=== PATIENT | male | born 1960 | race Caucasian/White ===

== ENCOUNTER → 2016-09-03 | Outpatient (RCR) | payer OTHER ==
[~2016-09-03] MED LIST: /ESCI20TA OR; /HALO1T OR; ABIL2TAB; ABIL5TAB; ACAM0.05 PO; ASPI81TA3; AVAP150T; CLARITIN PO; Campral PO; DEPA500T2; ECOT81TA5 PO; FURO40TA2 PO; GEMF600T; GEMF600T PO; INVE156I IM; INVE234I IM; INVE3TAB2 PO; INVEGA PO; K-TA10TA2 PO; KLON1TAB; KLOR10TA OR; LASI40TA; LASI40TA OR; LIDO1OIN2 TOP; LIDO5DIS; LISI10TA4 OR; LISI10TA4 PO; LOPI600T OR; METF500T PO; MULT1TAB8 PO; NIFE20CA PO; NIFE30TA; NIFEPOW PO; OMEP20CA3 PO; POTA10CA2; PROV90AE; PROZ10CA; PROZ10CA7 PO; REST30CA; RISP3TAB16; RISP4TAB; SERO1TAB PO; SERO400T PO; SERO50TA PO; TRIL150T PO; TRIL1TAB PO; TRIL600T OR; ZYPR10TA PO; campral PO
== END ==
LOC: M OUTALCOH 08-06 09:40
PROVIDERS: ATTEND Psychiatry & Neurology Psychiatry
DX: F10.20 Alcohol dependence, uncomplicated (principal); F12.20 Cannabis dependence, uncomplicated; F17.200 Nicotine dependence, unspecified, uncomplicated

== ENCOUNTER 2016-09-26 09:00 | Outpatient (RCR) | payer OTHER | END 2016-10-01 | LOC: M OUTALCOH 09:00 | PROVIDERS: ATTEND Psychiatry & Neurology Psychiatry | DX: F10.20 Alcohol dependence, uncomplicated (principal); F12.20 Cannabis dependence, uncomplicated; F17.200 Nicotine dependence, unspecified, uncomplicated ==

== ENCOUNTER 2016-10-22 10:00 | Outpatient (RCR) | payer OTHER | END 2016-11-01 | LOC: M OUTALCOH 10:00 | PROVIDERS: ATTEND Psychiatry & Neurology Psychiatry | DX: F10.20 Alcohol dependence, uncomplicated (principal); F12.20 Cannabis dependence, uncomplicated; F17.200 Nicotine dependence, unspecified, uncomplicated ==

== ENCOUNTER 2016-11-19 10:00 | Outpatient (RCR) | payer OTHER | END 2016-12-01 | LOC: M OUTALCOH 10:00 | PROVIDERS: ATTEND Psychiatry & Neurology Psychiatry | DX: Z13.9 Encounter for screening, unspecified (principal); F12.20 Cannabis dependence, uncomplicated; F10.20 Alcohol dependence, uncomplicated; F17.200 Nicotine dependence, unspecified, uncomplicated ==

== ENCOUNTER 2016-12-31 10:00 | Outpatient (RCR) | payer OTHER | END 2017-01-01 | LOC: M OUTALCOH 10:00 | PROVIDERS: ATTEND Psychiatry & Neurology Psychiatry | DX: F10.20 Alcohol dependence, uncomplicated (principal); F12.20 Cannabis dependence, uncomplicated; F17.200 Nicotine dependence, unspecified, uncomplicated ==

== ENCOUNTER 2017-01-30 09:00 | Outpatient (RCR) | payer OTHER ==
[~2017-01-30 09:00] MED LIST changes: -METF500T PO; +METF500T13 PO
== END 2017-01-31 ==
LOC: M OUTALCOH 09:00
PROVIDERS: ATTEND Psychiatry & Neurology Psychiatry
DX: Z13.9 Encounter for screening, unspecified (principal); F10.20 Alcohol dependence, uncomplicated; F12.20 Cannabis dependence, uncomplicated; F17.200 Nicotine dependence, unspecified, uncomplicated

== ENCOUNTER 2017-02-25 10:00 | Outpatient (RCR) | payer OTHER | END 2017-03-03 | LOC: M OUTALCOH 10:00 | PROVIDERS: ATTEND Psychiatry & Neurology Psychiatry | DX: F10.20 Alcohol dependence, uncomplicated (principal); F12.20 Cannabis dependence, uncomplicated; F17.200 Nicotine dependence, unspecified, uncomplicated ==

== ENCOUNTER 2017-04-02 15:00 | Outpatient (RCR) | payer OTHER | END 2017-04-03 | LOC: M OUTALCOH 15:00 | PROVIDERS: ATTEND Psychiatry & Neurology Psychiatry | DX: F10.20 Alcohol dependence, uncomplicated (principal); F12.20 Cannabis dependence, uncomplicated; F17.200 Nicotine dependence, unspecified, uncomplicated ==

== ENCOUNTER 2017-05-02 15:00 | Outpatient (RCR) | payer OTHER | END 2017-05-03 | LOC: M OUTALCOH 15:00 | PROVIDERS: ATTEND Psychiatry & Neurology Psychiatry | DX: F10.20 Alcohol dependence, uncomplicated (principal); F12.20 Cannabis dependence, uncomplicated; F17.200 Nicotine dependence, unspecified, uncomplicated ==

== ENCOUNTER 2017-06-30 16:00 | Outpatient (RCR) | payer OTHER | END 2017-07-03 | LOC: M OUTALCOH 16:00 | PROVIDERS: ATTEND Psychiatry & Neurology Psychiatry | DX: F10.20 Alcohol dependence, uncomplicated (principal); F12.20 Cannabis dependence, uncomplicated; F17.200 Nicotine dependence, unspecified, uncomplicated ==

== ENCOUNTER 2017-08-14 14:27 | Outpatient (RCR) | payer OTHER | END 2017-09-03 | LOC: M OUTALCOH 14:27 | DX: F10.20 Alcohol dependence, uncomplicated (principal) | CPT/HCPCS: 90834 ==

== ENCOUNTER 2017-09-17 11:07 | Outpatient (RCR) | payer OTHER | END 2017-10-01 | LOC: M OUTALCOH 10-01 10:00 | DX: F10.20 Alcohol dependence, uncomplicated (principal); F12.20 Cannabis dependence, uncomplicated | CPT/HCPCS: 90834 ==

== ENCOUNTER 2017-10-15 10:08 | Outpatient (RCR) | payer OTHER | END 2017-11-01 | LOC: M OUTALCOH 10-29 10:00 | DX: F10.20 Alcohol dependence, uncomplicated (principal) | CPT/HCPCS: 90834 ==

== ENCOUNTER 2017-11-12 11:13 | Outpatient (RCR) | payer OTHER | END 2017-12-01 | LOC: M OUTALCOH 11:13 | DX: F10.20 Alcohol dependence, uncomplicated (principal) | CPT/HCPCS: 90834 ==

== ENCOUNTER 2017-12-10 14:17 | Outpatient (RCR) | payer OTHER | END 2018-01-01 | LOC: M OUTALCOH 14:17 | DX: F10.20 Alcohol dependence, uncomplicated (principal) | CPT/HCPCS: 90834 ==

== ENCOUNTER 2018-01-14 11:28 | Outpatient (RCR) | payer OTHER | END 2018-01-31 | LOC: M OUTALCOH 11:28 | DX: F10.20 Alcohol dependence, uncomplicated (principal) | CPT/HCPCS: 90834 ==

== ENCOUNTER 2018-02-02 10:52 | Outpatient (RCR) | payer OTHER | END 2018-03-03 | LOC: M OUTALCOH 10:52 | DX: F10.20 Alcohol dependence, uncomplicated (principal) | CPT/HCPCS: 90834 ==

== ENCOUNTER 2018-04-09 15:32 | Outpatient (RCR) | payer OTHER | END 2018-05-03 | LOC: M OUTALCOH 15:32 | DX: F10.20 Alcohol dependence, uncomplicated (principal) | CPT/HCPCS: 90834 ==

== ENCOUNTER 2018-05-05 10:00 | Outpatient (RCR) | payer OTHER | END 2018-06-03 | LOC: M OUTALCOH 05-07 11:00 | DX: F10.20 Alcohol dependence, uncomplicated (principal) | CPT/HCPCS: 90834 ==

== ENCOUNTER 2018-06-04 09:29 | Outpatient (RCR) | payer OTHER | END 2018-07-03 | LOC: M OUTALCOH 06-11 11:00 | DX: F10.20 Alcohol dependence, uncomplicated (principal) | CPT/HCPCS: 90834 ==

== ENCOUNTER 2018-07-31 09:48 | Outpatient (RCR) | payer OTHER ==
[~2018-07-31 09:48] MED LIST changes: -GEMF600T PO; +GEMF600T5 PO
== END 2018-08-03 ==
LOC: M OUTALCOH 09:48
PROVIDERS: ATTEND Psychiatry & Neurology Psychiatry
DX: F10.20 Alcohol dependence, uncomplicated (principal)

== ENCOUNTER 2018-08-25 09:48 | Outpatient (RCR) | payer OTHER | END 2018-09-03 | LOC: M OUTALCOH 09:48 | PROVIDERS: ATTEND Psychiatry & Neurology Psychiatry | DX: F10.20 Alcohol dependence, uncomplicated (principal) ==

== ENCOUNTER → 2018-10-01 | Outpatient (RCR) | payer OTHER | LOC: M OUTALCOH 09-08 09:45 | PROVIDERS: ATTEND Psychiatry & Neurology Psychiatry | DX: F10.20 Alcohol dependence, uncomplicated (principal) ==

== ENCOUNTER 2018-10-28 08:46 | Outpatient (RCR) | payer OTHER | END 2018-11-01 | LOC: M OUTALCOH 08:46 | PROVIDERS: ATTEND Psychiatry & Neurology Psychiatry | DX: F10.20 Alcohol dependence, uncomplicated (principal) ==

== ENCOUNTER 2018-11-24 10:00 | Outpatient (RCR) | payer OTHER ==
[~2018-11-24 10:00] MED LIST changes: -/ESCI20TA OR; -/HALO1T OR; +HALO1TAB20 OR; +LEXA1TAB2 OR
== END 2018-12-01 ==
LOC: M OUTALCOH 10:00
PROVIDERS: ATTEND Psychiatry & Neurology Psychiatry
DX: F10.20 Alcohol dependence, uncomplicated (principal)

== ENCOUNTER 2018-12-29 10:58 | Outpatient (RCR) | payer OTHER | END 2019-01-01 | LOC: M OUTALCOH 10:58 | PROVIDERS: ATTEND Psychiatry & Neurology Psychiatry | DX: F10.20 Alcohol dependence, uncomplicated (principal) ==

== ENCOUNTER 2019-01-26 11:00 | Outpatient (RCR) | payer OTHER | END 2019-01-31 | LOC: M OUTALCOH 11:00 | PROVIDERS: ATTEND Psychiatry & Neurology Psychiatry | DX: F10.20 Alcohol dependence, uncomplicated (principal) ==

== ENCOUNTER 2019-02-24 12:00 | Outpatient (RCR) | payer OTHER ==
[~2019-02-24 12:00] MED LIST changes: -OMEP20CA3 PO; +OMEP20CA4 PO
== END 2019-03-03 ==
LOC: M OUTALCOH 12:00
PROVIDERS: ATTEND Psychiatry & Neurology Psychiatry
DX: F10.20 Alcohol dependence, uncomplicated (principal)

== ENCOUNTER 2019-03-22 08:57 | Outpatient (RCR) | payer OTHER | END 2019-04-03 | LOC: M OUTALCOH 08:57 | PROVIDERS: ATTEND Psychiatry & Neurology Psychiatry | DX: F10.20 Alcohol dependence, uncomplicated (principal) ==

== ENCOUNTER 2019-04-12 10:50 | Outpatient (RCR) | payer OTHER | END 2019-05-03 | LOC: M OUTALCOH 10:50 | PROVIDERS: ATTEND Psychiatry & Neurology Psychiatry | DX: F10.20 Alcohol dependence, uncomplicated (principal) ==

== ENCOUNTER 2019-05-24 10:59 | Outpatient (RCR) | payer OTHER | END 2019-06-03 | LOC: M OUTALCOH 10:59 | PROVIDERS: ATTEND Psychiatry & Neurology Psychiatry | DX: F10.20 Alcohol dependence, uncomplicated (principal) ==

== ENCOUNTER 2019-07-05 08:54 | Outpatient (RCR) | payer OTHER ==
[~2019-07-05 08:54] MED LIST changes: +OMEP-172 PO; -OMEP20CA4 PO
== END 2019-08-03 ==
LOC: M OUTALCOH 08:54
PROVIDERS: ATTEND Psychiatry & Neurology Psychiatry
DX: F10.20 Alcohol dependence, uncomplicated (principal)

== ENCOUNTER 2019-08-16 08:58 | Outpatient (RCR) | payer OTHER ==
[~2019-08-16 08:58] MED LIST changes: -OMEP-172 PO; +OMEP1CAP73 PO
== END 2019-09-03 ==
LOC: M OUTALCOH 08:58
PROVIDERS: ATTEND Psychiatry & Neurology Addiction Medicine
DX: F10.20 Alcohol dependence, uncomplicated (principal)

== ENCOUNTER 2019-09-27 15:32 | Outpatient (RCR) | payer OTHER | END 2019-10-02 | LOC: M OUTALCOH 15:32 | PROVIDERS: ATTEND Psychiatry & Neurology Addiction Medicine | DX: F10.20 Alcohol dependence, uncomplicated (principal) ==

== ENCOUNTER 2019-11-10 09:45 | Outpatient (RCR) | payer OTHER | END 2019-12-02 | LOC: M OUTALCOH 09:45 | PROVIDERS: ATTEND Psychiatry & Neurology Addiction Medicine | DX: F10.20 Alcohol dependence, uncomplicated (principal) ==

== ENCOUNTER 2019-12-21 11:05 | Outpatient (RCR) | payer OTHER | END 2020-01-02 | LOC: M OUTALCOH 11:05 | PROVIDERS: ATTEND Psychiatry & Neurology Addiction Medicine | DX: F10.20 Alcohol dependence, uncomplicated (principal) ==

== ENCOUNTER 2020-01-25 13:59 | Outpatient (RCR) | payer OTHER | END 2020-02-01 | LOC: M OUTALCOH 13:59 | PROVIDERS: ATTEND Counselor Addiction (Substance Use Disorder) | DX: F10.20 Alcohol dependence, uncomplicated (principal) ==

== ENCOUNTER 2020-02-29 10:00 | Outpatient (RCR) | payer OTHER | END 2020-03-03 | LOC: M OUTALCOH 10:00 | PROVIDERS: ATTEND Psychiatry & Neurology Addiction Medicine | DX: F10.20 Alcohol dependence, uncomplicated (principal) ==

== ENCOUNTER 2020-04-04 09:48 | Outpatient (RCR) | payer OTHER | END 2020-05-03 | LOC: M OUTALCOH 09:48 | PROVIDERS: ATTEND Psychiatry & Neurology Addiction Medicine | DX: F10.20 Alcohol dependence, uncomplicated (principal) ==

== ENCOUNTER 2020-05-16 10:40 | Outpatient (RCR) | payer OTHER | END 2020-06-03 | LOC: M OUTALCOH 10:40 | PROVIDERS: ATTEND Psychiatry & Neurology Addiction Medicine | DX: F10.20 Alcohol dependence, uncomplicated (principal) ==

== ENCOUNTER 2020-06-27 14:37 | Outpatient (RCR) | payer OTHER | END 2020-07-03 | LOC: M OUTALCOH 14:37 | PROVIDERS: ATTEND Psychiatry & Neurology Addiction Medicine | DX: F10.20 Alcohol dependence, uncomplicated (principal) ==

== ENCOUNTER 2020-08-22 09:49 | Outpatient (RCR) | payer OTHER | END 2020-09-03 | LOC: M OUTALCOH 09:49 | PROVIDERS: ATTEND Psychiatry & Neurology Psychiatry | DX: F10.20 Alcohol dependence, uncomplicated (principal) ==

== ENCOUNTER 2020-10-03 09:45 | Outpatient (RCR) | payer OTHER ==
[~2020-10-03 09:45] MED LIST changes: +LISI10TA22 PO; -LISI10TA4 PO
== END 2020-11-01 ==
LOC: M OUTALCOH 09:45
PROVIDERS: ATTEND Psychiatry & Neurology Psychiatry
DX: F10.20 Alcohol dependence, uncomplicated (principal)

== ENCOUNTER 2020-11-14 11:40 | Outpatient (RCR) | payer OTHER | END 2020-12-01 | LOC: M OUTALCOH 11:40 | PROVIDERS: ATTEND Psychiatry & Neurology Psychiatry | DX: F10.20 Alcohol dependence, uncomplicated (principal) ==

== ENCOUNTER 2021-01-02 13:10 | Outpatient (RCR) | payer OTHER | END 2021-01-31 | LOC: M OUTALCOH 13:10 | PROVIDERS: ATTEND Psychiatry & Neurology Psychiatry | DX: F10.20 Alcohol dependence, uncomplicated (principal) ==

== ENCOUNTER → 2022-09-12 | Outpatient (REF) | payer OTHER ==
[~2022-09-12] MED LIST changes: +CHOL10007 PO; +FLOM0.4C39 PO; +FLUT1BLS2 IH; +GLIM4TAB5 PO; +JARD1TAB3 PO; +LEXA1TAB PO; +LISI20TA33 PO; +NESI25TA PO; +NIFE90TA20 PO; +ROSU20TA5 PO; +SPIR1CAP INH; +VITMTA PO
== END ==
LOC: M LABSMTC 10:24
PROVIDERS: ATTEND Anesthesiology
DX: Z11.52 Encounter for screening for COVID-19 (principal)

== ENCOUNTER → 2022-10-25 | Outpatient (CLI) | payer OTHER ==
[~2022-10-25] MED LIST changes: +ALOG1TAB2 PO; +[UNRECOGNIZED DRUG - OTHER]
== END ==
LOC: M LABSMTC 09:12
PROVIDERS: ATTEND Anesthesiology
DX: Z01.812 Encounter for preprocedural laboratory examination (principal); Z20.822 Contact with and (suspected) exposure to COVID-19

== ENCOUNTER 2022-10-28 08:35 | Day surgery (SDC) | payer OTHER ==
[~2022-10-28] VITALS: Ht 180.3 cm; Wt 135.2 kg
[~2022-10-28 08:35] MED LIST changes: +BSS IRRIG/VANCO(10MG)/TOBRA(5MG)/EPINEPH(1:1000-0.5CC)500ML BAG-ORONLY IR ONE; +CYCLOPENTOLATE 1% OPHTH SOLN 2ML BTL OD SCH; +LIDOCAINE 1% SDV 5ML VIAL As Ordered ONE; +LIDOCAINE 3.5 % 1ML OPHTH TOPICAL GEL OU ONE; +MIDAZOLAM INJ 2MG/2ML VIAL As Ordered ONE; +OFLOXACIN 0.3 % (OCUFLOX) OPTH SOL 5ML OD ONE; +PHENYLEPHRINE 10% OPHTH SOL 5ML OD PRN; +PHENYLEPHRINE 2.5% OPHTH SOL 2ML OD SCH; +TROPICAMIDE 1% OPHTH SOLN 15ML OD SCH; +fentaNYL 100 MCG/2 ML INJECTION As Ordered ONE
[2022-10-28 10:25] VITALS: BP 171/82
== END 2022-10-28 10:25 | disposition home or self-care (01) ==
LOC: M SDC 08:35
PROVIDERS: ATTEND Ophthalmology
DX: H25.11 Age-related nuclear cataract, right eye (principal); H57.03 Miosis; I10 Essential (primary) hypertension; E78.5 Hyperlipidemia, unspecified; E11.9 Type 2 diabetes mellitus without complications; K76.0 Fatty (change of) liver, not elsewhere classified; F41.9 Anxiety disorder, unspecified; F20.9 Schizophrenia, unspecified; F32.A Depression, unspecified; J44.9 Chronic obstructive pulmonary disease, unspecified; G47.30 Sleep apnea, unspecified; F17.210 Nicotine dependence, cigarettes, uncomplicated; Z88.0 Allergy status to penicillin; Z88.6 Allergy status to analgesic agent; Z79.899 Other long term (current) drug therapy
CPT/HCPCS: 66982; J2250; J3010; V2632

== ENCOUNTER 2022-11-11 12:03 | Day surgery (SDC) | payer OTHER ==
[~2022-11-11] VITALS: Ht 180.3 cm; Wt 130.8 kg
[~2022-11-11 12:03] MED LIST changes: -CYCLOPENTOLATE 1% OPHTH SOLN 2ML BTL OD SCH; -MIDAZOLAM INJ 2MG/2ML VIAL As Ordered ONE; -OFLOXACIN 0.3 % (OCUFLOX) OPTH SOL 5ML OD ONE; +OFLOXACIN 0.3 % (OCUFLOX) OPTH SOL 5ML OS ONE; -PHENYLEPHRINE 10% OPHTH SOL 5ML OD PRN; +PHENYLEPHRINE 10% OPHTH SOL 5ML OS PRN; -PHENYLEPHRINE 2.5% OPHTH SOL 2ML OD SCH; -TROPICAMIDE 1% OPHTH SOLN 15ML OD SCH; -fentaNYL 100 MCG/2 ML INJECTION As Ordered ONE
[2022-11-11] MEDS ORDERED: fentaNYL 100 MCG/2 ML INJECTION As Ordered ONE (13:01)
[2022-11-11] MEDS ORDERED: MIDAZOLAM INJ 2MG/2ML VIAL As Ordered ONE (13:01)
[2022-11-11] MEDS: CYCLOPENTOLATE 1% OPHTH SOLN 2ML BTL OS SCH ×2 (13:53→13:54)
[2022-11-11] MEDS: TROPICAMIDE 1% OPHTH SOLN 15ML OS SCH (13:54)
[2022-11-11] MEDS: PHENYLEPHRINE 2.5% OPHTH SOL 2ML OS SCH (13:54)
[2022-11-11 14:10] VITALS: BP 148/82
== END 2022-11-11 14:11 | disposition home or self-care (01) ==
LOC: M SDC 12:03
PROVIDERS: ATTEND Ophthalmology
DX: H25.12 Age-related nuclear cataract, left eye (principal); I10 Essential (primary) hypertension; E78.5 Hyperlipidemia, unspecified; K76.0 Fatty (change of) liver, not elsewhere classified; F20.9 Schizophrenia, unspecified; G47.30 Sleep apnea, unspecified; N40.0 Benign prostatic hyperplasia without lower urinary tract symptoms; F17.210 Nicotine dependence, cigarettes, uncomplicated; Z88.0 Allergy status to penicillin; Z88.6 Allergy status to analgesic agent; Z79.899 Other long term (current) drug therapy
CPT/HCPCS: 66984; J2250; J3010; V2632

== ENCOUNTER → 2023-12-31 | Outpatient (CLI) | payer OTHER, MEDICARE ==
[~2023-12-31] MED LIST changes: -BSS IRRIG/VANCO(10MG)/TOBRA(5MG)/EPINEPH(1:1000-0.5CC)500ML BAG-ORONLY IR ONE; -K-TA10TA2 PO; -LIDOCAINE 1% SDV 5ML VIAL As Ordered ONE; -LIDOCAINE 3.5 % 1ML OPHTH TOPICAL GEL OU ONE; -NIFE90TA20 PO; +NIFE90TA46 PO; -OFLOXACIN 0.3 % (OCUFLOX) OPTH SOL 5ML OS ONE; -PHENYLEPHRINE 10% OPHTH SOL 5ML OS PRN; +POTA-165 PO; -ROSU20TA5 PO; +ROSU20TA61 PO
== END ==
LOC: M SLEEP 19:32
PROVIDERS: ATTEND Nurse Practitioner Family
DX: G47.33 Obstructive sleep apnea (adult) (pediatric) (principal)

== ENCOUNTER 2024-08-13 14:15 | Emergency (ER) | payer MEDICARE, OTHER ==
[~2024-08-13] VITALS: Ht 180.3 cm; Wt 125.0 kg
[~2024-08-13 14:15] MED LIST changes: +NIFE1CAP2 PO; -NIFE20CA PO; -ROSU20TA61 PO; +ROSU20TA86 PO
[2024-08-13 14:19] VITALS: BP 129/76; TEMP 96; O2SAT 95
== END 2024-08-13 15:03 | disposition left against medical advice (07) ==
LOC: M ED 14:15
DX: Z53.21 Procedure and treatment not carried out due to patient leaving prior to being seen by health care provider (principal)

== ENCOUNTER → 2025-04-20 | Outpatient (CLI) | payer OTHER ==
[~2025-04-20] MED LIST changes: -FLOM0.4C39 PO; +PROZ10CA11 PO; -PROZ10CA7 PO; +TAMS-18 PO
== END ==
LOC: M RAD 08:39
PROVIDERS: ATTEND Nurse Practitioner Family
DX: Z87.891 Personal history of nicotine dependence (principal)

== ENCOUNTER 2025-05-16 21:49 | Emergency (ER) | payer MEDICARE, OTHER ==
[~2025-05-16] VITALS: Ht 180.3 cm; Wt 133.0 kg
[2025-05-17 00:41] VITALS: BP 141/91; TEMP 97.4; O2SAT 95
== END 2025-05-17 00:42 | disposition home or self-care (01) ==
LOC: M ED 21:49
DX: M25.562 Pain in left knee (principal); E11.9 Type 2 diabetes mellitus without complications; I10 Essential (primary) hypertension; E78.5 Hyperlipidemia, unspecified; G47.33 Obstructive sleep apnea (adult) (pediatric); F20.9 Schizophrenia, unspecified; F32.A Depression, unspecified; F17.200 Nicotine dependence, unspecified, uncomplicated; Z88.0 Allergy status to penicillin; Z88.6 Allergy status to analgesic agent; Z79.899 Other long term (current) drug therapy